=== PATIENT | female | born 1970 | race Caucasian/White ===

== ENCOUNTER → 2021-05-01 | Day surgery (SDC) | payer OTHER ==
[~2021-05-01] VITALS: Ht 165.1 cm; Wt 170.1 kg
[~2021-05-01] MED LIST: ALBUTEROL2.5 MG/3 M NEB; BREO ELLIPTA 11 EACH PO; BROMFED DM COU473 ML PO; BUSPAR5 MG PO; BUTALB-ACETAMI1 EACH PO; CLARITIN-D 241 EACH PO; CYANOCOBAL1000 MCG/1 SC; FLEXERIL10 MG PO; FLOVENT HF120 PUFFS/; GLUCOPHAGE XR500 MG PO; GLUMETZA500 MG PO; HUMALOG 75100 UNIT/M SC; HUMALOG MI100 UNIT/1 SC; HYZAAR 100-12.1 EACH PO; IBUPROFEN800 MG PO; K-DUR20 MEQ PO; LASIX40 MG PO; MOBIC7.5 MG PO; NORVASC5 MG PO; NYSTATIN POWDER TOP; OZEMPIC1 MG/0.75 SC; PREDNISONE20 MG PO; PREVACID15 M1 PO; PREVACID30 M1 PO; PROMETHAZINE 2525 MG PO; SINGULAIR10 MG PO; TOUJEO MAX300 UNIT/1 SC; TRESIBA FL100 UNIT/1 SC; UNITHROID25 MCG PO; UROCIT-K10 MEQ PO; VENTOLIN HFA IN18 GM INH; VICTOZA 2-0.6 MG/0.1 SC; WELLBUTRIN XL150 MG PO; ZPAK PO; [UNRECOGNIZED DRUG - OTHER] PO; [UNRECOGNIZED DRUG - SUPPLY] PO
[2021-05-01 08:29] LABS: HCG (URINE) SCREEN NEGATIVE (NEGATIVE)
[2021-05-01 09:12] LABS: BASOPHIL 0.8 % (0-2); EOSINOPHIL 2.8 % (0-5); HCT 41.2 % (37.0-47.0); HGB 13.4 g/dl (12.5-16.0); LYMPHOCYTE 23.2 % (15-48); MCH 29.5 pg (25.0-31.0); MCHC 32.5 g/dL (32.0-36.0); MCV 90.5 fL (78.0-100.0); MONOCYTE 6.7 % (0-12); MPV 9.8 fL (6.0-9.5); NEUTROPHIL 66.1 % (41-80); NRBC 0; PLT 318 K/uL (150-400); RBC 4.55 M/uL (4.20-5.40); RDW 13.5 % (11.5-14.0); WBC 11.4 K/uL (4.0-10.5)
[2021-05-01 09:13] LABS: BUN/CREAT RATIO (CALC) 16.2 RATIO; CREATININE 0.74 mg/dL (0.51-0.95); POTASSIUM 3.7 mmol/L (3.5-5.1)
== END | disposition home or self-care (01) ==
LOC: FAS 08:00
PROVIDERS: Obstetrics & Gynecology
DX: N92.0 Excessive and frequent menstruation with regular cycle (principal); J44.9 Chronic obstructive pulmonary disease, unspecified; E11.65 Type 2 diabetes mellitus with hyperglycemia; K21.9 Gastro-esophageal reflux disease without esophagitis; I10 Essential (primary) hypertension; E03.9 Hypothyroidism, unspecified; G43.909 Migraine, unspecified, not intractable, without status migrainosus; F41.9 Anxiety disorder, unspecified; G47.30 Sleep apnea, unspecified; Z86.010 Personal history of colon polyps; Z88.0 Allergy status to penicillin; Z88.8 Allergy status to other drugs, medicaments and biological substances; Z91.048 Other nonmedicinal substance allergy status; Z79.4 Long term (current) use of insulin; Z79.899 Other long term (current) drug therapy
CPT/HCPCS: 36415; 80048; 82962; 84703; 85025; 86850; 86900; 86901; 93005; J1170; J2250; J2405; J2704; J3010; J7120

== ENCOUNTER → 2021-07-24 | Day surgery (SDC) | payer OTHER ==
[~2021-07-24] VITALS: Ht 165.1 cm; Wt 173.3 kg
[~2021-07-24] MED LIST changes: +BENADRYL25 MG PO; +PERCOCET 5-3251 EACH PO; +RYBELSUS3 MG PO
[2021-07-24 08:17] LABS: HCG (URINE) SCREEN NEGATIVE (NEGATIVE)
[2021-07-24 08:38] LABS: HCT 40.6 % (37.0-47.0); MCH 29.7 pg (25.0-31.0); MCV 92.7 fL (78.0-100.0); MPV 9.4 fL (6.0-9.5); RBC 4.38 M/uL (4.20-5.40); RDW 14.4 % (11.5-14.0); WBC 9.5 K/uL (4.0-10.5)
[2021-07-24 10:37] LABS: BUN/CREAT RATIO (CALC) 17.8 RATIO; CREATININE 0.73 mg/dL (0.51-0.95); POTASSIUM 4.1 mmol/L (3.5-5.1)
== END | disposition home or self-care (01) ==
LOC: FAS 08:02
PROVIDERS: Anesthesiology; Obstetrics & Gynecology
DX: N85.8 Other specified noninflammatory disorders of uterus (principal); N93.9 Abnormal uterine and vaginal bleeding, unspecified; D64.9 Anemia, unspecified; M19.90 Unspecified osteoarthritis, unspecified site; J45.909 Unspecified asthma, uncomplicated; J44.9 Chronic obstructive pulmonary disease, unspecified; E11.9 Type 2 diabetes mellitus without complications; K21.9 Gastro-esophageal reflux disease without esophagitis; I10 Essential (primary) hypertension; E03.9 Hypothyroidism, unspecified; G43.909 Migraine, unspecified, not intractable, without status migrainosus; E66.9 Obesity, unspecified; E53.8 Deficiency of other specified B group vitamins; G47.30 Sleep apnea, unspecified; Z91.048 Other nonmedicinal substance allergy status; Z79.4 Long term (current) use of insulin; Z79.899 Other long term (current) drug therapy; Z79.891 Long term (current) use of opiate analgesic; Z88.1 Allergy status to other antibiotic agents; Z88.0 Allergy status to penicillin; Z88.8 Allergy status to other drugs, medicaments and biological substances; Z90.49 Acquired absence of other specified parts of digestive tract
CPT/HCPCS: 36415; 80048; 84703; 86850; 86900; 86901; J1100; J1170; J1885; J2001; J2250; J2405; J2704; J3010; J7120